=== PATIENT | female | born 1940 | race Caucasian/White ===

== ENCOUNTER → 2017-05-04 | Outpatient (CLI) | payer MEDICARE, BC | END | disposition home or self-care (01) | LOC: PCVCCLINIC 12:40 | PROVIDERS: ATTEND Internal Medicine Cardiovascular Disease | DX: I48.91 Unspecified atrial fibrillation (principal); I10 Essential (primary) hypertension; I34.0 Nonrheumatic mitral (valve) insufficiency; E78.00 Pure hypercholesterolemia, unspecified | CPT/HCPCS: 93280 ==

== ENCOUNTER → 2017-05-05 | Outpatient (CLI) | payer MEDICARE, BC | LOC: PCVCCLINIC 12:50 | PROVIDERS: ATTEND Internal Medicine Cardiovascular Disease | DX: I48.91 Unspecified atrial fibrillation (principal); I10 Essential (primary) hypertension; I34.0 Nonrheumatic mitral (valve) insufficiency; G47.33 Obstructive sleep apnea (adult) (pediatric); E78.00 Pure hypercholesterolemia, unspecified; I21.3 ST elevation (STEMI) myocardial infarction of unspecified site; M19.90 Unspecified osteoarthritis, unspecified site | CPT/HCPCS: 80061; G0463 ==

== ENCOUNTER → 2017-05-25 | Outpatient (CLI) | payer MEDICARE, BC ==
[~2017-05-25] MED LIST: SULFUR HEXAFLUORIDE MICROSPHR 25 MG VIAL. IVP ONE
--- NOTE | 2017-05-25 17:35 | PCVCIMAG ---
APPROVED REPORT Study performed: 05/25/2017 13:10:04 EXAM: Comprehensive 2D, Doppler, and color-flow Echocardiogram Status: routine Other Information Study Quality: Technically Limited Indications Atrial Fib. Hyperension, Hyperlipidemia. Soa, Chest Pain. 2D Dimensions IVSd: 12.23 (7-11mm) LVDd: 37.36 mm PWd: 15.18 (7-11mm) LVDs: 32.25 (25-40mm) Geiger's LVEF: 29.86 % Volumes Left Atrial Volume (Systole) Single Plane 4CH: 71.39 mL Aortic Valve AoV Peak Benjamin.: 1.07 m/s AO Peak Gr.: 5.17 mmHgLVOT Max P.29 mmHg LVOT Max V: 0.91 m/s Pulmonary Valve PV Peak Gr.: 2.79 mmHg Left Ventricle The left ventricle is normal size. There is normal LV segmental wall motion. There is normal left ventricular wall thickness. Left ventricular systolic function is normal. The left ventricular ejection fraction is within the normal range. LVEF is 55%. The left ventricular diastolic function is normal. Right Ventricle The right ventricle is normal size. The right ventricular systolic function is normal. Atria The left atrium size is normal. The right atrium size is normal. Aortic Valve The aortic valve is normal in structure. No aortic regurgitation is present. There is no aortic valvular stenosis. Mitral Valve The mitral valve is normal in structure. There is no mitral valve regurgitation noted. No evidence of mitral valve stenosis. Tricuspid Valve The tricuspid valve is normal in structure. There is no tricuspid valve regurgitation noted. Pulmonic Valve The pulmonary valve is normal in structure. There is no pulmonic valvular regurgitation. Great Vessels The aortic root is normal in size. IVC is normal in size and collapses with >50% inspiration Pericardium There is no pericardial effusion. <Conclusion> The left ventricle is normal size. Left ventricular systolic function is normal. The left ventricular ejection fraction is within the normal range. The left ventricular diastolic function is normal. The right ventricle is normal size. The left atrium size is normal. No aortic regurgitation is present. There is no mitral valve regurgitation noted. There is no pericardial effusion. There is no mitral valve regurgitation noted.
== END | disposition home or self-care (01) ==
LOC: PCVCIMAG 12:47
PROVIDERS: ATTEND Internal Medicine Cardiovascular Disease
DX: I48.91 Unspecified atrial fibrillation (principal); E78.5 Hyperlipidemia, unspecified; I10 Essential (primary) hypertension; I34.0 Nonrheumatic mitral (valve) insufficiency; E78.00 Pure hypercholesterolemia, unspecified; I21.3 ST elevation (STEMI) myocardial infarction of unspecified site; K21.9 Gastro-esophageal reflux disease without esophagitis; Z95.0 Presence of cardiac pacemaker
CPT/HCPCS: 93306; Q9950

== ENCOUNTER → 2017-11-14 | Outpatient (CLI) | payer MEDICARE, BC | END | disposition home or self-care (01) | LOC: PCVCCLINIC 10:38 | DX: I25.10 Atherosclerotic heart disease of native coronary artery without angina pectoris (principal); I48.91 Unspecified atrial fibrillation; I10 Essential (primary) hypertension; E78.00 Pure hypercholesterolemia, unspecified; I34.0 Nonrheumatic mitral (valve) insufficiency; G47.33 Obstructive sleep apnea (adult) (pediatric); Z95.0 Presence of cardiac pacemaker; Z79.899 Other long term (current) drug therapy | CPT/HCPCS: 80061; 93279; G0463 ==

== ENCOUNTER → 2018-03-03 | Outpatient (CLI) | payer MEDICARE, BC | END | disposition home or self-care (01) | LOC: PCVCCLINIC 11:49 | DX: I48.91 Unspecified atrial fibrillation (principal); I25.10 Atherosclerotic heart disease of native coronary artery without angina pectoris; I10 Essential (primary) hypertension; E78.00 Pure hypercholesterolemia, unspecified; I34.0 Nonrheumatic mitral (valve) insufficiency; G47.33 Obstructive sleep apnea (adult) (pediatric); E66.01 Morbid (severe) obesity due to excess calories; Z68.43 Body mass index [BMI] 50.0-59.9, adult; Z79.899 Other long term (current) drug therapy | CPT/HCPCS: 93279; G0463 ==

== ENCOUNTER → 2018-08-21 | Outpatient (CLI) | payer MEDICARE, BC | END | disposition home or self-care (01) | LOC: PCVCCLINIC 14:29 | PROVIDERS: ATTEND Internal Medicine Cardiovascular Disease | DX: I25.10 Atherosclerotic heart disease of native coronary artery without angina pectoris (principal); I48.91 Unspecified atrial fibrillation; E66.01 Morbid (severe) obesity due to excess calories; I34.0 Nonrheumatic mitral (valve) insufficiency; E78.00 Pure hypercholesterolemia, unspecified; Z95.0 Presence of cardiac pacemaker; Z68.43 Body mass index [BMI] 50.0-59.9, adult; Z79.899 Other long term (current) drug therapy | CPT/HCPCS: 80061; 93279; G0463 ==

== ENCOUNTER → 2019-03-16 | Outpatient (CLI) | payer MEDICARE, BC ==
--- NOTE | 2019-03-16 12:55 | PCVCIMAG ---
APPROVED REPORT Study performed: 03/16/2019 11:01:05 EXAM: Comprehensive 2D, Doppler, and color-flow Echocardiogram Patient Location: Echo lab Room #: [id number]: routine BSA: 2.14 HR: 80 bpmBP: 124/82 mmHg Rhythm: Atrial Fibrillation Other Information Study Quality: Adequate Technically limited study due to body habitus. Risk Factors: Cardiac Risk Factors: HTN, Hyperlipidemia Indications Pre-Chemo Atrial Fibrillation Pacemaker CAD 2D Dimensions IVSd: 12.04 (7-11mm)LVOT Diam: 19.00 (18-24mm) LVDd: 50.26 mm PWd: 10.69 (7-11mm)Ascending Ao: 32.29 (22-36mm) LVDs: 35.45 (25-40mm) Left Atrium: 43.12 (27-40mm) Aortic Root: 26.39 mm LV Single Plane 4CH: 63.34 % LV Single Plane 2CH: 53.54 % Biplane EF: 58.2 % Volumes Left Atrial Volume (Systole) Single Plane 4CH: 67.73 mLSingle Plane 2CH: 56.88 mL LA ESV Index: 30.00 mL/m2 Aortic Valve AoV Peak Benjamin.: 1.30 m/s AO Peak Gr.: 7.30 mmHgLVOT Max P.68 mmHg LVOT Max V: 0.94 m/s KIMI Vmax: 2.07 cm2 Pulmonary Valve PV Peak Benjamin.: 0.74 m/sPV Peak Gr.: 2.17 mmHg Tricuspid Valve TR Peak Benjamin.: 2.76 m/sRAP Estimate: 7.00 mmHg TR Peak Gr.: 30.55 mmHg PA Pressure: 38.00 mmHg Left Ventricle The left ventricle is normal size. There is normal LV segmental wall motion. Mild concentric left ventricular hypertrophy. Left ventricular systolic function is normal. The left ventricular ejection fraction is within the normal range. LVEF is 55-60%. This study is not technically sufficient to allow evaluation of the LV diastolic function due to atrial fibrillation. Right Ventricle The right ventricle is normal size. The right ventricular systolic function is normal. Pacemaker lead is present in the right ventricle. Atria Left atrium is borderline dilated. Right atrium is dilated. Aortic Valve The Aortic valve is sclerotic. No aortic regurgitation is present. There is no aortic valvular stenosis. Mitral Valve There is mitral annular calcification. Mild mitral regurgitation. No evidence of mitral valve stenosis. Tricuspid Valve The tricuspid valve is normal in structure. Mild to moderate tricuspid regurgitation. Pulmonary artery pressure is 38 mmHg. Pulmonic Valve The pulmonary valve is normal in structure. Trace pulmonic regurgitation. Great Vessels The aortic root is normal in size. The ascending aorta is normal in size. IVC is normal in size and collapses >50% with inspiration. Pericardium There is no pericardial effusion. <Conclusion> The left ventricle is normal size. Mild concentric left ventricular hypertrophy. LVEF is 55-60%. This study is not technically sufficient to allow evaluation of the LV diastolic function due to atrial fibrillation. The right ventricle is normal size. Pacemaker lead is present in the right ventricle. Left atrium is borderline dilated. Right atrium is dilated. The Aortic valve is sclerotic. Mild mitral regurgitation. Mild to moderate tricuspid regurgitation. Pulmonary artery pressure is 38 mmHg. The aortic root is normal in size. There is no pericardial effusion.
== END | disposition home or self-care (01) ==
LOC: PCVCIMAG 10:36
PROVIDERS: ATTEND Internal Medicine Cardiovascular Disease
DX: Z51.11 Encounter for antineoplastic chemotherapy (principal); I08.3 Combined rheumatic disorders of mitral, aortic and tricuspid valves; I11.9 Hypertensive heart disease without heart failure; I25.10 Atherosclerotic heart disease of native coronary artery without angina pectoris; E78.00 Pure hypercholesterolemia, unspecified; G47.33 Obstructive sleep apnea (adult) (pediatric); I27.20 Pulmonary hypertension, unspecified; I48.2 Chronic atrial fibrillation; I10 Essential (primary) hypertension; I49.5 Sick sinus syndrome; Z95.0 Presence of cardiac pacemaker
CPT/HCPCS: 36415; 80061; 93005; 93306; G0463

== ENCOUNTER → 2019-10-29 | Outpatient (CLI) | payer MEDICARE, BC ==
[~2019-10-29] MED LIST changes: +REGADENOSON 0.4 MG/5 ML DISP.SYRIN. IV ONE; -SULFUR HEXAFLUORIDE MICROSPHR 25 MG VIAL. IVP ONE
--- NOTE | 2019-10-29 16:27 | PCVCIMAG ---
APPROVED REPORT Imaging Protocol: Rest Tc-99m/Stress Tc-99m 1 day Study performed: 10/29/2019 09:19:51 Indication: Atrial Fibrillation, Syncope, Pre-Operative CV evaluation, CAD Patient Location: Out-Patient Stress Nurse: Kaitlyn Smith RN, Joselin Costa RN [place] Tech:ALEJANDRA TeranMT Ht: 5 ft 2 in Wt: 240 lbs BSA: 2.07 m2 HR: 72 bpm BP: 143/72 mmHg BMI: 43.8 Rhythm: Atrial Fibrillation Medical History Medical History: Atrial Fibrillation, HTN, HTN, CAD Medications: Atenolol, Diltiazem, Sacvaysa, Zetia, Crestor, Aldactone, Demadex Allergies: Hydralazine Cardiac Risk Factors: Age Previous Cardiac Procedures: 2018 Nuclear Stress Test - Nonischemic Pretest Chest Pain Characteristics: No chest pain Exercise History: Sedentary Physical Disabilities: uses a walker - pre TKA Meds Held (24 hrs): Atenolol Resting Data Rest SPECT myocardial perfusion imaging was performed in supine position 45 minutes following the intravenous injection of 13.1 mCi of Tc-99m Sestamibi. Time of rest injection: 0845 Date: 10/29/2019 Administration Route: IV Administration Site: Left AC Pharmacologic Stress Pharmacologic stress test was performed by injecting Regadenoson 0.4 mg IV push over 10-15 seconds immediately followed by the intravenous injection of 46.6 mCi of Tc-99m Sestamibi. Time of stress injection: 09 Date: 10/29/2019 Administration Route: IV Administration Site: Left AC Gated Stress SPECT was performed 45 minutes after stress injection. The images were gated to evaluate regional wall motion and calculate left ventricular ejection fraction. Stress Test Details Stress Test: Pharmacologic stress testing performed using 0.4 mg of regadenoson per 5 mL given IV over 10 seconds. Reason for pharmacologic stress test: physical limitation, uses a walker. HRMax Heart Rate (APMHR): 143 bpm Resting HR: 72 bpmTarget HR (85% APMHR): 121 bpm Max HR Achieved: 58 bpm % of APMHR: 40 Recovery HR: 65 bpm BP Resting BP: 143/72 mmHg Max BP: 142/76 mmHg Recovery BP: 136/76 mmHg ECG Resting ECG: Atrial Fibrillation with intermittent ventricular pacing Stress ECG: Atrial Fibrillation with intermittent ventricular pacing ST Change: Nondiagnostic V-pacing Maximum ST Deviation: 0 mm Recovery ECG: Atrial Fibrillation intermittent ventricular pacing Recovery ST Change: Nondiagnostic V-pacing Clinical Reason for Termination: Completed protocol Stress Symptoms: Abdominal discomfort, Dyspnea, Nausea Symptoms resolved with caffeine. Stress ECG Conclusion Clinical: Non-ischemic Electrocardiographic response indeterminate due to intermittent ventricular pacing Study Quality Study: Good Study Data Post stress, the left ventricular ejection was 74%.. SSS: 6 SRS: 6 SDS: 2 TID = 1.18. Perfusion No evidence of stress induced ischemia or prior myocardial infarction. Wall Motion Normal left ventricular size and function with no regional wall motion abnormalities. Nuclear Conclusion No evidence of stress induced ischemia or prior myocardial infarction. Normal left ventricular size and function with no regional wall motion abnormalities. Post stress, the left ventricular ejection was 74%. No change since prior study dated April 2018. Interpreted by: Jose Luis Mishra MD Electronically Approved: 10/29/2019 13:43:25 <Conclusion> Clinical: Non-ischemic Electrocardiographic response indeterminate due to intermittent ventricular pacing
== END | disposition home or self-care (01) ==
LOC: PCVCIMAG 08:13
PROVIDERS: ATTEND Internal Medicine Cardiovascular Disease
DX: I25.10 Atherosclerotic heart disease of native coronary artery without angina pectoris (principal); I48.91 Unspecified atrial fibrillation; I11.0 Hypertensive heart disease with heart failure; I50.9 Heart failure, unspecified; E78.00 Pure hypercholesterolemia, unspecified; G47.33 Obstructive sleep apnea (adult) (pediatric); Z90.49 Acquired absence of other specified parts of digestive tract; Z90.710 Acquired absence of both cervix and uterus; Z90.09 Acquired absence of other part of head and neck; Z96.652 Presence of left artificial knee joint
CPT/HCPCS: 78452; 93017; A9500; J2785